=== PATIENT | female | born 1940 | race Caucasian/White ===

== ENCOUNTER 2017-02-18 12:43 | Inpatient (IN) ==
--- NOTE | 2017-02-18 13:49 | PROVIDER DOCUMENTATION ---
HPI-Musculoskeletal Pain/Inj - GENERAL Chief Complaint: Fall Stated Complaint: FALL Time Seen by Provider: 02/18/17 13:34 Source: patient, family - HX OF PRESENT ILLNESS-MUSKULOSKELTAL Nature of Presenting Problem: 77 year old WF presents with c/o right shoulder, right wrist, right hand, right knee, right hip pain. pt report she had a mechanical fall last night, tripped on her night coat. she reports she fell onto her right side, striking her right wrist/shoulder onto concrete. pt denies head, neck, back trauma/pain. pt report she was up all night due to pain. she reports taking advil last night and this morning without relief. pt has been unable to bear weight on RLE/right knee secondary to pain. pt reports she heard/felt a pop with movement. Quality of Pain: reports: aching, dull Severity in ED: mild Onset/Duration: last night Timing: still present, constant, getting worse Modifying Factors: improves with: nothing, analgesics Any recent injury?: Yes Locality of Occurance: Home Similar Symptoms Previously?: No Recently seen or treated by another doctor?: No - FALL INJURY Location of Pain/Injury: reports: upper extremity, hand(s), pelvis, lower extremity Pain Radiation: reports: no radiation Reason for Fall: reports: lost balance, slipped, tripped Symptoms prior to fall:: reports: none. denies: headache, seizure, other, fever /chills/sweaty, chest pain, rapid heart rate, cough, diarrhea, vomiting, GI bleed, dizzy/lightheaded Loss of Consciousness: no loss of consciousness Injury Associated Symptoms: reports: arm pain, joint pain, snap/crack/pop sensation, unable to bear weight, trouble walking. denies: shortness of breath , sensory/motor loss - TRUNK INJURY Location of Injury(s)/Pain: reports: pelvis Context / Method of Injury: reports: fall Associated Symptoms: denies: denies symptoms, anxiety, arm pain, back/neck pain , chest pain, nausea/vomiting, shortness of breath, sensory/motor loss, pain with breathing, other - HIP/PELVIS PAIN/INJURY Hip Pain Location: reports: hip (R), pelvis Pain Radiation: reports: no radiation. denies: abdomen, back, buttocks, feet, genitals, groin, flank, lower legs, periumbilical, upper legs, other Context / Method of Injury: reports: fall Associated Symptoms: reports: denies symptoms. denies: loss of bladder control , loss of bowel control, lower back pain, muscle spasms, numbness in legs/feet, sensory/motor loss, tingling in legs/feet, weakness in legs/feet, other - LOWER EXTREMITY PAIN/INJURY Lower Extremities Pain: hip: right, knee: right Context / Method of Injury: reports: fell Associated Symptoms: reports: denies symptoms. denies: loss of bladder control , loss of bowel control, lower back pain, muscle spasms, numbness in legs/feet, sensory/motor loss, tingling in legs/feet, weakness in legs/feet, other - UPPER EXTREMITY PAIN/INJURY Extremities Pain Location: shoulder: right, arm: right, forearm: right, wrist: right, hand: right Context / Method of Injury: reports: fell Associated Symptoms: reports: denies symptoms. denies: muscle spasms, numbness in upper ext, sensory/motor loss, tingling in upper ext, weakness in upper ext, other Review of Systems - Adult - REVIEW OF SYSTEMS - ADULT Constitutional: reports: no symptoms reported. denies: chills, fever, fatique Eyes: reports: no symptoms reported. denies: discharge, blurred vision, double vision Ears, Nose, Mouth & Throat: reports: no symptoms reported. denies: ear discharge, ear pain, nose pain, loose teeth, throat pain, throat swelling Cardiovascular: reports: no symptoms reported. denies: chest pain, palpitations , syncope Respiratory: reports: no symptoms reported. denies: chronic cough, cough, shortness of breath, wheezing Gastrointestinal: reports: no symptoms reported. denies: abdominal pain, diarrhea, nausea, vomiting Genitourinary: reports: no symptoms reported. denies: dysuria, hematuria, urgency Musculoskeletal: reports: see HPI, bone pain, joint pain, joint swelling. denies: back pain, frequent leg cramps, muscle aches, muscle weakness, neck pain Integumentary: reports: no symptoms reported. denies: hives, itching, skin sores/ulcer Neurological: reports: no symptoms reported. denies: ataxia, numbness, paresthesia Psychiatric: reports: no symptoms reported Endocrine: reports: no symptoms reported Hematologic/Lymphatic: reports: no symptoms reported Allergic/Immunologic: reports: no symptoms reported All Other Systems: Reviewed and Negative Past History - Adult - PAST MEDICAL HISTORY-ADULT Review of Records: reports: Old Records Reviewed, Nursing Assessment Review, Medications Reviewed, Social history reviewed & non-contributory. Major Childhood Illnesses: reports: denies history Cardiovascular: reports: HTN Respiratory: reports: denies history Gastrointestinal: reports: denies history Obstetrical/Gynecological: reports: denies history Genitourinary: reports: denies history Musculoskeletal: reports: arthritis Neurological: reports: denies history Endocrine/Immune: reports: thyroid disorder Other Conditions: reports: denies history - IMMUNIZATION STATUS Childhood Immunizations: See Nurse Assessment Flu Vaccine: See Nurse Assessment - FAMILY HISTORY Family History: reviewed, not pertinent - SOCIAL HISTORY Smoking: denies, non-smoker Substance Use: none/never Alcohol Use Frequency: never Physical Exam-Injury Related - Physical Exam-Injury Related Initial Vital Signs Reviewed: Yes General Appearance: appears well, alert, no apparent distress, obese. negative : mild distress, moderate distress, severe distress Immobilization?: negative: backboard, C-collar Eyes: PERRL/EOMI, pink conjunctivae Head, Ears, Nose, Mouth & Throat: normocephalic/atraumatic, moist mucous membranes, normal ENT inspection, TMs normal, pharynx normal Neck: non-tender, full range of motion, supple, normal inspection. negative: C- spine tenderness, decresed ROM, ecchymosis, limited range of motion, pain on movement, tender lateral, tender midline, vertebral point tenderness Respiratory: chest non-tender, lungs clear, normal breath sounds, no pleuratic chest pain, no respiratory distress, no accessory muscle use. negative: respiratory distress, decreased breath sounds, accessory muscle use, crackles, rales, rhonchi, stridor, wheezing Cardiovascular: normal peripheral pulses, regular rate, rhythm Chest/Breast: no tenderness Peripheral Pulses: radial (R): 3+, radial (L): 3+, dorsalis-pedis (R): 3+, dorsalis-pedis (L): 3+ Abdominal Exam: non tender, soft. negative: distended, guarding, tenderness Back Exam: normal inspection, no CVA tenderness, no vertebral tenderness. negative: CVA tenderness, decreased range of motion, swelling, vertebral tenderness Extremity: no pedal edema, no calf tenderness, normal capillary refill, pelvis stable, deformity (right wrist with deformity, swelling, ecchymosis, decreased ROM, neurovascular intact.), joint effusion (right knee with decreased ROM, flexion/extention. pt able to bear weight with exam, ambulate with slow steady gait.), swelling (right medial/lateral knee with swelling), tenderness, other. negative: normal range of motion, non-tender, normal gait, normal inspection, abnormal NV exam, calf tenderness, pulse deficit, pedal edema, slow capillary refill Integumentary: normal color, warm/dry Neurologic: grossly normal, no motor/sensory deficits Psych/Mental Status: normal mood/affect, normal thought content, normal thought process, oriented x 3 - Glascow Coma Score Best Eye Response (Ismael): (4) open spontaneously Best Verbal Response ([place]): (5) oriented Best Motor Response ([place]): (6) obeys commands [place] Total: 15 Progress - PLAN OF CARE/RESULTS Progress/Plan/Lab Results: Vital Signs - 8 hr 02/18/17 12:50 Temperature 97.9 F Pulse Rate 66 Respiratory Rate 20 Blood Pressure 158/71 O2 Sat by Pulse Oximetry 100 Orders Category Date Time Status Knee Immobilizer .right Care 02/18/17 15:32 Active OCL Splint DIRECTED Care 02/18/17 15:32 Active FOREARM-RIGHT [RAD] Stat Exams 02/18/17 13:51 Completed HAND COMPLETE RIGHT [RAD] Stat Exams 02/18/17 13:50 Completed KNEE 3 VIEWS RIGHT [RAD] Stat Exams 02/18/17 13:52 Completed TRAUMA SHOULDER RIGHT [RAD] Stat Exams 02/18/17 13:49 Completed XRAY PELVIS W/HIP 2-3VW RT [RAD] Stat Exams 02/18/17 13:52 Completed Diph,Pertuss(Acell),Tet Vac/Pf [Boostrix Vaccine] Med 02/18/17 13:50 Discontinued 0.5 ml IM .ONCE ONE Morphine Med 02/18/17 13:50 Discontinued 2 mg IM NOW ONE Ondansetron Odt [Zofran Odt] Med 02/18/17 13:50 Discontinued 4 mg PO NOW ONE Supervisory visit. Pt requested a referral to Dr. Mckay for orthopedics, she reports she has used him in the past for previous orthopedic injuries. Discussed with patient the need to return if she feels as if she is unsafe at home with falling. Pt verbalized understanding. - XRAY 1 XRAY: Right XRAY Study: Forearm Impression: Abnormal (Colles fracture of the wrist. per Dr. Dyson) 2 XRAY: Right XRAY Study: Hand Impression: Abnormal (colles fracture of the wrist. per Dr. Dyson) 3 XRAY: Right XRAY Study: Pelvis, Hip Impression: Abnormal (degenerative changes. per Dr. Dyson) 4 XRAY: Right XRAY Study: Shoulder (Progression in chronic superior positioning of the humeral head, degenrative changes of the shoulder. per Dr. Dyson), Knee ( Knee osteoarthritis and nonspecific joint effusion. per Dr. Dyson) Departure - Departure Date of Disposition Decision: 02/18/17 Time of Disposition Decision: 15:28 DIAGNOSIS: Effusion, right knee Colles' fracture Qualifiers: Encounter type: initial encounter Fracture type: closed Laterality: right Qualified Code(s): S52.531A - Colles' fracture of right radius, initial encounter for closed fracture Fall Qualifiers: Encounter type: initial encounter Qualified Code(s): W19.XXXA - Unspecified fall, initial encounter Contusion of right shoulder Qualifiers: Encounter type: initial encounter Qualified Code(s): S40.011A - Contusion of right shoulder, initial encounter Disposition: HOME 01 Certified Medical Emergency: Emergent Condition: Stable Additional Freetext Instructions: Apply ice to the right wrist for 10 minutes every 2-3 hours, be sure to apply a barrier between your skin and the ice. Wear the splint and the knee immobilizer until you see Dr. Mckay on Monday. Motrin for pain, take with food and pepcid. Take the norco with food and zofran. Do not drink alcohol or drive while taking the norco. ED Follow Up Instructions: You have been treated by a care provider in the Emergency Department. These instructions are being provided to you so you can have an understanding of how to care for yourself upon discharge. Upon discharge from the Emergency Department, you are responsible for making arrangements for follow-up care by a physician of your choice. Take all prescribed medications as directed. Return to the Emergency Department immediately for any new or worsening symptoms. You may call the Physician Referral phone number at [phone] to obtain a list of Physicians who are taking new patients. Prescriptions: Ibuprofen [Motrin] 600 mg PO Q8H PRN PRN #10 tablet PRN Reason: pain, inflammation Hydrocodone/APAP 5 mg/325 mg [Marbury-5] 0.5 - 1 each PO Q6H PRN PRN #7 tablet PRN Reason: Pain Famotidine [Pepcid] 20 mg PO DAILY #20 tablet Ondansetron Odt [Zofran 4 mg Odt] 4 mg PO Q6H PRN PRN #20 tablet PRN Reason: nausea with the norco Referrals and Follow-Ups: Cassius Mitchell MD [Primary Care Provider] - Freddy Mckay MD [ACTIVE STAFF PHYSICIAN] - - Critical Care Note This patient required my direct & personal management of CC.: No Attestation - Physician/ ASHOK Attestation Patient care was provided by Advanced Practice Provider:: Yes Advanced Practice Provider:: Aranza Del Castillo Advanced Practice Provider documentation review:: The Mid-level provider documentation, treatment plan and medical decision making was reviewed by the physician who agrees with all treatment and medical decision making by the MLP.
[2017-02-18] MEDS ORDERED: MORPHINE IM ONE (13:50)
[2017-02-18] MEDS ORDERED: BOOSTRIX VACCINE IM ONE (13:50)
[2017-02-18] MEDS ORDERED: ZOFRAN ODT PO ONE (13:50)
--- NOTE | 2017-02-18 14:59 | Diag Imaging Result Doc PS360 ---
HAND COMPLETE RIGHT - 02/18/2017 INDICATION: fall. right hand/wrist trauma TECHNIQUE: Three views COMPARISON: None FINDINGS: There is a mildly impacted Colles' fracture of the distal radius. No fractures in the hand. IMPRESSION: Colles' fracture of the wrist. Electronically signed by Ander Dyson 02/18/2017 2:56 PM
--- NOTE | 2017-02-18 14:59 | Diag Imaging Result Doc PS360 ---
FOREARM-RIGHT - 02/18/2017 INDICATION: fall TECHNIQUE: Two views COMPARISON: None FINDINGS: There is a Colles' fracture of the distal radius. No other fractures of the forearm. IMPRESSION: Colles' fracture of the wrist. Electronically signed by Ander Dyson 02/18/2017 2:57 PM
--- NOTE | 2017-02-18 15:01 | Diag Imaging Result Doc PS360 ---
TRAUMA SHOULDER RIGHT - 02/18/2017 INDICATION: fall, right shoulder pain TECHNIQUE: Three views COMPARISON: 04/22/2014 FINDINGS: There has been progression in the superior subluxation of the humeral head indicating likely supraspinatus tendon rupture that is chronic. No acute fracture or dislocation. Stable moderate degeneration of the glenohumeral and acromioclavicular joints. IMPRESSION: Progression in chronic superior positioning of the humeral head. Degenerative changes of the shoulder. Electronically signed by Ander Dyson 02/18/2017 2:58 PM
--- NOTE | 2017-02-18 15:02 | Diag Imaging Result Doc PS360 ---
XRAY PELVIS W/HIP 2-3VW RT - 02/18/2017 INDICATION: fall, unable to bear weight TECHNIQUE: Three views COMPARISON: CT from 01/03/2017 FINDINGS: There is mild osteoarthritis of the hips bilaterally. Mild degenerative calcifications of the greater trochanters and the iliac wings. Moderate degeneration of the sacroiliac joints and lower lumbar spine. No fracture or dislocation. IMPRESSION: Degenerative changes. Electronically signed by Ander Dyson 02/18/2017 2:59 PM
--- NOTE | 2017-02-18 15:03 | Diag Imaging Result Doc PS360 ---
KNEE 3 VIEWS RIGHT - 02/18/2017 INDICATION: fall, right knee pain TECHNIQUE: COMPARISON: None FINDINGS: There is a moderate, nonspecific joint effusion. No visible fracture. There is advanced degeneration of the medial joint compartment with severe joint space narrowing and osteophyte formation. There is also lesser degeneration of the patella and lateral joint compartments. IMPRESSION: 1. Knee osteoarthritis. 2. Nonspecific joint effusion. Electronically signed by Ander Dyson 02/18/2017 3:00 PM
[2017-02-18] MEDS ORDERED: DILAUDID IV PRN (20:14)
[2017-02-18 20:47] LABS: MANUAL DIFF NEEDED? NO
[2017-02-18 20:48] LABS: BASO% 0.1 % (0.0-0.8); EOS# 0.02 X1000 (0.0-0.7); EOS% 0.3 % (0.0-10.0); HEMATOCRIT 33.2 % (37.0-47.0); HEMOGLOBIN 11.4 g/dL (12.0-16.0); LYMPH# 1.24 X1000 (1.2-3.4); LYMPH% 15.9 % (20.5-51.1); MCH 31.1 PG (27-31); MCHC 34.3 g/dL (33-37); MCV 90.7 FL (81-99); MONO# 0.96 X1000 (0.11-0.59); MONO% 12.3 % (1.7-9.3); MPV 9.3 FL (7.4-10.4); NEUT% 71.4 % (42.2-75.2); PLT 244 X1000 (130-400); RBC 3.66 XMIL (4.2-5.4)
[2017-02-18 20:56] LABS: INR 0.98; PROTIME 10.3 Seconds (9.2-11.7); PTT 26.9 Seconds (22.0-36.0)
[2017-02-18 21:30] LABS: AGAP 11; ALBUMIN 3.5 g/dL (3.5-5.0); ALKALINE PHOSPHATASE 69 U/L (32-104); BUN 17 mg/dL (8-22); CALCIUM 9.6 mg/dL (8.8-10.2); CHLORIDE 92 mmol/L (98-107); COSMO 255; GOT 19 U/L (10-30); GPT 16 U/L (10-36); HEMOGLOBIN A1C 5.7 % (4.8-6.0); POTASSIUM 4.6 mmol/L (3.5-5.1); SODIUM 126 mmol/L (136-145); TCO2 23 mmol/L (25-35); TOTAL BILIRUBIN 0.54 mg/dL (0.20-1.00); TOTAL PROTEIN 6.2 g/dL (6.3-8.3)
[2017-02-18 21:36] LABS: FREE T4 1.68 ng/dL (0.93-1.70)
[2017-02-18] MEDS: LIPITOR PO SCH (23:38)
[2017-02-18] MEDS: TYLENOL PO PRN (23:39)
[2017-02-18] MEDS: PRINIVIL PO SCH (23:39)
--- NOTE | 2017-02-18 23:48 | HISTORY AND PHYSICAL ---
CHIEF COMPLAINT: Fall with right wrist and knee pain and shoulder pain. HISTORY OF PRESENT ILLNESS: The patient is a 77-year-old white female followed in my medical practice who states last evening she was out on her porch watering her storey when she stooped over in her nightgown and stepped on the hem of it causing her to trip forward and injure her right distal forearm, wrist area, wrench her right knee and hurt her right shoulder and hip area. The patient has been found on x-ray to have a mildly impacted right Colles fracture and injury possible ligament strain to the right knee and the ER personnel tried to discharge the patient home but she was unable to ambulate on her right hip and knee as she is an overweight individual and could not get in the car. 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 MEDICATIONS: Prior to admission are Synthroid 112 mcg p.o. daily, lisinopril 10 mg half tablet p.o. b.i.d., Lipitor 20 mg p.o. at bedtime, vitamin C 500 mg p.o. daily, B complex vitamin 1 p.o. daily, vitamin D3 2000 units p.o. daily, MiraLAX 17 g in 8 ounces of water daily. ALLERGIES: Levaquin and adhesive tape. PAST MEDICAL HISTORY: 1. Hypothyroidism diagnosed 1977. 2. Hyperlipidemia. 3. Fibrocystic breast disease. 4. Mitral valve prolapse. 5. 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 6. Membranous nephropathy followed long-term by nephrology at [facility]. 7. History of melanoma right breast area remote. 8. Gout. 9. Hypertension. 10. Type 2 DM diagnosed March 2004. 11. Diverticulosis diagnosed 2006. 12. Mild CAD per left heart catheterization June 2009. PAST SURGICAL HISTORY: 1. Breast biopsy x2. 2. Cholecystectomy. 3. BROOKLYN, BSJuan Manuel 1985. 4. Bilateral cataract surgery 2013. IMMUNIZATIONS: Patient has received Pneumovax 23 11/12/1998, 10/04/2004 and 11/17/2016. Prevnar 13 given June 2015. Last flu vaccination March 2016. FAMILY HISTORY: Notable for laryngeal cancer in her father, aunt with female cancer, NC in her mother her early 40s, stroke in her grandmother, hypertension in her mother, mother and father with hypercholesterolemia. SOCIAL HISTORY: Patient lives in [facility]. She is , has 2 children. 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 No drug use. REVIEW OF SYSTEMS: Negative except for chronic constipation. Last colonoscopy 2012. PHYSICAL EXAMINATION: VITAL SIGNS: Afebrile, pulse 65, respirations 18, blood pressure 135/69, O2 saturation room air 97%. Weight 185, 5 feet 2 inches tall. GENERAL: Moderately obese white female in mild discomfort with her right wrist and hip and knee area. SKIN: No lacerations. HEENT: NC/AT, PRISCILLA, EOMI. Sclerae clear. OP no redness. Tongue in the midline. NECK: No LA, TMG, JVD, bruits. CV: RRR with faint 1/6 murmur. LUNGS: CTA. ABDOMEN: Protuberant, soft, NT, ND, no mass, no HSM. BREASTS/PELVIC/RECTAL: Deferred. EXTREMITIES: Left lower extremity peripheral pulse 2+/4 and there is no swelling or calf tenderness on the left. There is a right knee immobilizer currently in place and the right wrist, forearm area has a splint on it heavily wrapped. She is tender about the right shoulder. DATA: X-rays have been done and show right knee osteoarthritis with nonspecific joint effusion. Hip and pelvis show degenerative changes bilaterally/OA but no fracture. Forearm and wrist x-ray and hand x-ray shows Colles fracture right distal radius and mildly impacted. Right shoulder x- ray reveals progression of chronic superior positioning of the humeral head and degenerative changes of the shoulder. The patient has had some longstanding right shoulder difficulty and is followed by Dr. Anton in this regard. ASSESSMENT: 1. Inability to walk. 2. Right Colles fracture mildly impacted. 3. Right knee effusion and sprain, rule out cartilage tear or ligament tear. 4. Right hip pain. 5. Right shoulder pain. 6. Fall mechanical in nature. 7. Hypothyroidism. 8. Hypertension. 9. Type 2 diabetes mellitus. 10. Mild coronary artery disease. 11. Diverticulosis. 12. Membranous nephropathy. 13. Remote history of melanoma. 14. Mitral valve prolapse. 15. Hyperlipidemia. 16. Obesity. PLAN: At this time will admit the patient. Will get labs. Will give patient pain control. Will ask Dr. Mckay to see her for orthopedic difficulties. Monitor Accu-Cheks and give SSI as required keeping her on a diabetic diet, saline lock her and will consult addiction social worker for inpatient rehab evaluation. Await Dr. Mckay's evaluation. cc: Cassius Mitchell MD
[2017-02-19] MEDS: HUMULIN R SUBQ SCH ×5 (02:31→22:22)
[2017-02-19] MEDS ORDERED: SYNTHROID PO SCH (07:00)
[2017-02-19] MEDS: MIRALAX PO SCH (10:35)
[2017-02-19] MEDS: VITAMIN C PO SCH (10:36)
[2017-02-19] MEDS: VICON-C PO SCH (10:36)
[2017-02-19] MEDS: PRINIVIL PO SCH ×2 (10:37→22:22)
[2017-02-19] MEDS: VITAMIN D PO SCH (10:37)
--- NOTE | 2017-02-19 15:44 | PROGRESS NOTE ---
DATE: 02/19/2017 SUBJECTIVE: Patient overall stable. Some soreness about the knee, forearm, shoulder. OBJECTIVE: Vital signs: Afebrile, pulse 74, respirations 18, O2 saturation is that 98% room air. Blood pressure 92/42, Cardiovascular: Regular rhythm and rate. Lungs: Computed tomography angiography. No calf tenderness, cords or edema. Mild swelling about the right knee. Small abrasion right anterior knee. There is a splint on the right wrist/forearm area, tender diffusely about the right shoulder. LABORATORY DATA: From yesterday shows sodium 126, potassium 4.6, BUN 17, creatinine 0.8. LFTs normal. TSH 0.07. Free T4 1.68. White count 7.8, hemoglobin 11.44, platelets 244,000, PT and PTT normal. ASSESSMENT: 1. Fall. 2. Right Colles fracture. 3. Right rotator cuff tear. 4. Right knee effusion and sprain with osteoarthritis noted. 5. Mild right hip pain. 6. Hyponatremia. 7. Hypothyroidism. 8. Hypertension. 9. Type 2 diabetes mellitus, diet controlled. 10. Mild coronary artery disease. 11. Diverticulosis. 12. Membranous nephropathy. 13. Remote history of melanoma. 14. Mitral venous prolapse. 15. Hyperlipidemia. 16. Obesity. PLAN: We will check urine sodium level. We will repeat BMP and CBC in the morning. Reduce her Synthroid from 112-100 mcg daily. Physical therapy will be initiated. Spoke with Dr. Carlos Sosa regarding the patient from an orthopedic standpoint. Rehab will be planned as she is unable to care for herself and her who has severe Alzheimer's. cc: Cassius Mitchell MD
--- NOTE | 2017-02-19 18:04 | CONSULTATION ---
DATE OF CONSULTATION: 02/19/2017 SUBJECTIVE: Olesya Plummer is a 77-year-old female who suffered a fall yesterday, complains of right shoulder, right knee and right wrist pain as well as right hip lateral pain. PHYSICAL EXAM: Reveals well nourished female. She is alert, oriented, cooperative exam. She is in a short-arm splint on the right. She has pain with any range of motion of her shoulder. She has pain with range of motion of her right knee but her leg and arm are neurovascularly intact. She has some mild pain in her right hip. Her hip was stable. Past medical history, past surgical history, medications, allergies see admission history and physical. DATA: X-rays show a right shoulder arthritis with proximal humeral head migration consistent with chronic rotator cuff tear. Her AP pelvis showed some degenerative changes. Her x-rays of her knee show severe [id number] degenerative joint disease of the right knee. Her wrist x-rays show a mildly impacted distal Colles fracture. IMPRESSION: 1. Right knee degenerative joint disease with acute flare. 2. Right shoulder osteoarthritis and chronic rotator cuff tear. 3. Right distal Colles fracture. PLAN: We will keep her in her splint on the right. We can discontinue the knee immobilizer as tolerated. We will get physical therapy to work with her for ambulation with a platform walker on the right. She will likely go to rehab later in the week. cc: MD Cassius Bey MD
[2017-02-19] MEDS: LIPITOR PO SCH (22:21)
[2017-02-20 06:27] LABS: HEMATOCRIT 37.6 % (37.0-47.0); HEMOGLOBIN 12.6 g/dL (12.0-16.0); MCH 30.9 PG (27-31); MCHC 33.5 g/dL (33-37); MCV 92.2 FL (81-99); MPV 9.8 FL (7.4-10.4); RBC 4.08 XMIL (4.2-5.4)
[2017-02-20 06:40] LABS: AGAP 11; BUN 16 mg/dL (8-22); CALCIUM 9.2 mg/dL (8.8-10.2); CHLORIDE 92 mmol/L (98-107); COSMO 258; POTASSIUM 5.1 mmol/L (3.5-5.1); SODIUM 128 mmol/L (136-145); TCO2 25 mmol/L (25-35)
[2017-02-20] MEDS ORDERED: SYNTHROID PO SCH (07:00)
[2017-02-20] MEDS: HUMULIN R SUBQ SCH ×4 (08:22→20:30)
[2017-02-20] MEDS ORDERED: DULCOLAX PR PRN (08:41)
[2017-02-20] MEDS ORDERED: MILK OF MAGNESIA PO PRN (08:41)
--- NOTE | 2017-02-20 09:35 | PROGRESS NOTE ---
DATE: 02/20/2017 SUBJECTIVE: Patient overall doing well. No specific complaints. No bowel movements since admission. OBJECTIVE: Vital Signs: Afebrile, pulse 72, respirations 16, blood pressure 140/91, O2 saturation on room air is 99%. CV: RRR. Lungs: CTA. Abdomen: Protuberant, soft, nontender, nondistended. Extremities: No calf tenderness or cords. Right knee with mild swelling, mild abrasion of anterior knee. Tender about the right knee, right shoulder, right hip area. Right wrist and forearm have a splint in place. Lab Data: Shows white count 8.7, hemoglobin 12.6, platelets 280,000. Sodium 128, potassium 5.1, chloride 92, CO2 25, BUN 16, creatinine 0.8, glucose 90, A1c 5.7, calcium 9.2. TSH 0.07, free T4 1.68. Apparently, patient is on suppressive therapy for thyroid nodules per Dr. Hamm. Urine sodium is 55. ASSESSMENT: 1. Fall. 2. Right Colles fracture with splint in place. 3. Right rotator cuff tear, complete. 4. Right knee effusion with sprain and osteoarthritis. 5. Mild right hip pain without fracture. 6. Syndrome of inappropriate antidiuretic hormone secretion, mild without known etiology. 7. Hypothyroidism with thyroid nodules and suppressive therapy per Dr. Hamm. 8. Hypertension. 9. Type 2 diabetes mellitus, diet controlled. 10. Mild coronary artery disease. 11. Diverticulosis. 12. Membranous nephropathy. 13. Remote history of melanoma. 14. Mitral valve prolapse. 15. Hyperlipidemia. 16. Obesity. PLAN: Continue to work with physical therapy. We will continue to monitor her sodium level. We will initiate DVT prophylaxis with subcutaneous Lovenox. We are working toward an inpatient rehab facility as she is trying to ambulate with a walker but difficult as she cannot bear any pressure on her right arm due to the splint and she is overweight. We will resume her Synthroid back up at her dose per Dr. Hamm at 112 mcg daily. We will provide laxatives as needed for mild constipation. cc: Cassius Mitchell MD
[2017-02-20] MEDS: PRINIVIL PO SCH ×2 (09:49→20:31)
[2017-02-20] MEDS: MIRALAX PO SCH (09:49)
[2017-02-20] MEDS: VITAMIN D PO SCH (09:49)
[2017-02-20] MEDS: VICON-C PO SCH (09:49)
[2017-02-20] MEDS: VITAMIN C PO SCH (09:49)
[2017-02-20] MEDS: TYLENOL PO PRN (14:07)
--- NOTE | 2017-02-20 16:18 | PROGRESS NOTE ---
DATE: 02/20/2017 SUBJECTIVE: Ms. Plummer is a 77-year-old female who is 3 days post falling at home where she experienced a right distal Colles fracture, a right shoulder osteoarthritis flare with a chronic rotator cuff tear and a right knee osteoarthritis acute flare. She has no new complaints today. She states that she is doing better. OBJECTIVE: General: She is a well-developed, well-nourished female. She is alert and oriented and cooperative with the examination. Vital Signs: Stable. She is afebrile. Extremities: Her short-arm splint is intact and she has good capillary refill in her fingers on the right side. She discerns soft touch to all fingers and she is able to move all fingers well. She still has pain with range of motion of her shoulder but it is improving. Her right arm and her right leg are neurovascularly intact. ASSESSMENT: 1. Right knee degenerative joint disease with acute flare. 2. Right shoulder osteoarthritis with chronic rotator cuff tear. 3. Right distal Colles fracture. PLAN: We will continue to keep her in a splint on the right wrist. We will have physical therapy work with her for ambulation with a platform walker on the right. We will continue to monitor and she will likely go to rehab later this week. Dictated by KILLIAN Sarah for Armando Sosa MD cc: KILLIAN Sarah MD Stephen W. Harbin, MD
[2017-02-20] MEDS: LIPITOR PO SCH (20:31)
[2017-02-21] MEDS: SYNTHROID PO SCH (06:33)
[2017-02-21] MEDS: LOVENOX SUBQ SCH (08:54)
[2017-02-21] MEDS: MIRALAX PO SCH (08:54)
[2017-02-21] MEDS: VICON-C PO SCH (08:55)
[2017-02-21] MEDS: VITAMIN C PO SCH (08:55)
[2017-02-21] MEDS: VITAMIN D PO SCH (08:55)
[2017-02-21] MEDS: PRINIVIL PO SCH ×2 (08:55→21:55)
--- NOTE | 2017-02-21 11:40 | PROGRESS NOTE ---
DATE: 02/21/2017 SUBJECTIVE: Ms. Plummer is a 77-year-old female, who is 4 days post following at home where she experienced a right distal Colles fracture, a right shoulder osteoarthritis acute flare with a chronic rotator cuff tear, and a right knee osteoarthritis acute flare. She states that she is still improving today, although her right knee is still bothering her. Otherwise, she is doing well. OBJECTIVE: General: She is a well developed, well-nourished female. She is alert, oriented, and cooperative with the examination. She is in no acute distress. Vital signs: Stable. She is afebrile. Extremities: Her right arm is in a short-arm splint which is intact. She has good capillary refill, and she discerned soft touch in all fingers. Gross motor and function is intact on her right side. She still has pain with range of motion of her shoulder and her right knee, but is improving. Right arm and right leg are neurovascularly intact. ASSESSMENT: 1. Right knee degenerative joint disease with acute flare. 2. Right shoulder osteoarthritis with chronic rotator cuff tear with acute flare. 3. Right distal Colles fracture. PLAN: We will continue to keep her in a splint on the right wrist, and we will continue working with her with physical therapy. She can be discharged to rehab when she is medically stable. We will have her follow up to see Dr. Sosa in 2 weeks for repeat x-rays of her right distal radius fracture. Dictated by KILLIAN Sarah for Armando Sosa MD cc: KILLIAN Sarah MD Stephen W. Harbin, MD
[2017-02-21] MEDS: HUMULIN R SUBQ SCH ×4 (11:53→21:54)
[2017-02-21] MEDS: LIPITOR PO SCH (21:55)
[2017-02-22] MEDS: SYNTHROID PO SCH (06:06)
[2017-02-22] MEDS: HUMULIN R SUBQ SCH ×2 (06:16→11:30)
[2017-02-22] MEDS: VICON-C PO SCH (10:01)
[2017-02-22] MEDS: VITAMIN C PO SCH (10:02)
[2017-02-22] MEDS: VITAMIN D PO SCH (10:02)
[2017-02-22] MEDS: PRINIVIL PO SCH (10:02)
[2017-02-22] MEDS: LOVENOX SUBQ SCH (10:03)
[2017-02-22] MEDS: MIRALAX PO SCH (10:03)
--- NOTE | 2017-02-22 10:26 | DISCHARGE SUMMARY ---
ADMISSION DATE: 02/18/2017 DISCHARGE DATE: 02/22/2017 DISCHARGE DIAGNOSES: 1. Fall. 2. Inability to walk without the help of a walker. 3. Right Colles' fracture, mildly impacted, not in need of surgery per orthopedics. 4. Right knee effusion and sprain on top of osteoarthritis. 5. Right hip pain following fall without evidence of fracture. 6. Complete right rotator cuff tear which is chronic and old but exacerbated by recent fall with osteoarthritis there as well. 7. Hypothyroidism. 8. Hyponatremia. 9. Possible syndrome of inappropriate antidiuretic hormone. 10. Hypertension. 11. Type 2 diabetes mellitus. 12. Mild coronary artery disease. 13. Diverticulosis. 14. Membranous nephropathy. 15. Remote history of melanoma. 16. Mitral valve prolapse. 17. Hyperlipidemia. 18. Morbid obesity. 19. Headache, improved today. SWEATBAND FLANGER: Dr. Armando Sosa, Orthopedics. PROCEDURES: X-rays done of the shoulder and forearm, pelvis, hips, knee on the right all revealing arthritic changes in the knee and right shoulder with probable complete tear of the right rotator cuff noted by displacement of the right humerus superiorly. Patient also has mildly impacted right Colles' fracture. REASON FOR ADMISSION AND HOSPITAL COURSE: The patient is a 77-year-old white female, who is obese, suffered a mechanical fall on 02/17/2017 and injured her right arm, right hip, right knee, right shoulder. She did not hit her head and had no loss of consciousness. She had stepped on her gown while she was watering her plants and gone down on her porch. She had trouble sleeping over night, but the next morning sought attention in the ER where x-rays confirmed mildly impacted right Colles' fracture and a splint was placed, but she could not hardly walk. She was discharged out to her car but almost had 2 falls trying to get into her vehicle with maximum assistance. Therefore, she was brought back in to the emergency room and admitted. Physical therapy worked with the patient and Dr. Sosa saw the patient in orthopedic consult with a walker given and medical problems were stable and essentially kept on home medicines with some SSI given as required. The patient suffered a severe headache on 02/21/2017 which was a little concerning and her blood pressure was good. We monitored throughout the day and that seemed to improve markedly by 02/22/2017. We were considering a CT of the head but, again, she had no history of head trauma. Neurological exam was nonfocal with cranial nerves intact. She had improved by 02/22/2017, and it was thought she was okay to go into a rehab facility which she desired. DISCHARGE MEDICATIONS: 1. Synthroid 112 mcg p.o. daily. 2. Prinivil 10 mg half tablet p.o. b.i.d. 3. Lipitor 20 mg p.o. at bedtime. 4. Vitamin C 500 mg p.o. daily. 5. B complex vitamin 1 p.o. daily. 6. Vitamin D 3 2000 units p.o. daily. 7. [place] 5 half to 1 p.o. q.6 hours p.r.n. pain. 8. Pepcid 20 mg p.o. daily. 9. Zofran 4 mg ODT p.o. q. 6 hours p.r.n. nausea or vomiting. 10. Motrin 600 mg p.o. q. 8 hours p.r.n. pain. 11. Tylenol 650 mg p.o. q.6 hours p.r.n. pain. 12. Dulcolax suppository 10 mg daily p.r.n. constipation. 13. Lovenox 40 mg subcutaneous q. 24 hours. 14. MiraLAX 17 g in 8 ounces of water daily. 15. Milk of Magnesia 30 mL p.o. daily p.r.n. constipation. LABORATORY DATA: Urine sodium elevated at 55. Discharge sodium was 128 which will need to be followed up in a week in the rehab facility. Discharge potassium 5.1, chloride 92, CO2 of 25. BUN 16, creatinine 0.8, glucose 90. Calcium 9.2. Liver function tests were normal. TSH 0.07 and free T4 of 1.68. She was on suppressive therapy per Dr. Hamm. So, we did not adjust that medication downward. White count 8.72, hemoglobin 12.6, platelets 280,000. PT 10.3, INR 0.98. PTT 26.9. PLAN: She will follow up with Dr. Sosa in 2 weeks and myself in 3 and half weeks. cc: MD Armando Lopez MD
[2017-02-22 12:19] VITALS: BP 128/72
--- NOTE | 2017-02-22 18:13 | PROGRESS NOTE ---
DATE: 02/22/2017 SUBJECTIVE: Olesya Plummer is a 77-year-old female who we are seeing for knee pain, hip pain, and a right wrist fracture. She states her knee and hip are much better. She states her wrist is better as well. PHYSICAL EXAMINATION: Reveals a well-developed, well-nourished female. She is alert and cooperative with exam. The splint on her hand incorporates her thumb and keeps her from being able to use her hand appropriately, but otherwise her hand is neurovascularly intact. ASSESSMENT: Healing right distal radius fracture with contusion to right knee, pelvis, and hip. PLAN: We are going to change her splint today. She can be transferred to rehab. She will return to see me in 2 weeks for follow-up exam. cc: MD Cassius Bey MD
== END 2017-02-22 14:08 ==
LOC: ED 12:43 → 4N 18:54
PROVIDERS: ADMIT Family Medicine; ATTEND Family Medicine

== ENCOUNTER 2019-01-11 17:59 | Inpatient (IN) ==
[2019-01-11] MEDS ORDERED: NS 1,000 ML IV ONE (18:22)
[2019-01-11] MEDS ORDERED: ZOFRAN IV ONE (18:22)
[2019-01-11 18:56] LABS: BASO# 0.01 X1000 (0.0-0.2); BASO% 0.1 % (0.0-0.8); EOS# 0.01 X1000 (0.0-0.7); EOS% 0.1 % (0.0-10.0); HEMATOCRIT 33.3 % (37.0-47.0); HEMOGLOBIN 11.9 g/dL (12.0-16.0); IMM GRAN# 0.05 X1000 (0.0-0.04); IMM GRAN% 0.5 % (0.0-0.5); LYMPH# 0.84 X1000 (1.2-3.4); LYMPH% 8.2 % (20.5-51.1); MCH 30.7 PG (27-31); MCHC 35.7 g/dL (33-37); MCV 85.8 FL (81-99); MONO# 0.66 X1000 (0.11-0.59); MONO% 6.4 % (1.7-9.3); NEUT# 8.71 X1000 (1.4-6.5); NEUT% 84.7 % (42.2-75.2); PLT 259 X1000 (130-400); RBC 3.88 XMIL (4.2-5.4); RDW 11.9 % (11.5-14.5); WBC 10.28 X1000 (4.8-10.8)
[2019-01-11 19:39] LABS: AGAP 13; ALB/GLOB RATIO 1.2; ALBUMIN 3.8 g/dL (3.5-5.0); ALKALINE PHOSPHATASE 74 U/L (32-104); AMYLASE 46 U/L (20-200); BUN 21 mg/dL (8-22); CALCIUM 8.4 mg/dL (8.8-10.2); CHLORIDE 79 mmol/L (98-107); COSMO 227; CREATININE 0.8 mg/dL (0.5-0.9); ESTIMATED GFR > 60; GLUCOSE 103 mg/dL (70-104); GOT 34 U/L (10-30); GPT 23 U/L (10-36); LIPASE 38 U/L (13-60); POTASSIUM 4.9 mmol/L (3.5-5.1); SODIUM 110 mmol/L (136-145); TCO2 18 mmol/L (25-35); TOTAL BILIRUBIN 0.91 mg/dL (0.20-1.00); TOTAL PROTEIN 6.9 g/dL (6.3-8.3)
--- NOTE | 2019-01-11 20:02 | PROVIDER DOCUMENTATION ---
This chart was entered by Paige Owen Scribe, acting as scribe for Albert Santillan MD. HPI-General Adult - General Chief Complaint: N/V/D Stated Complaint: DIZZY, CONFUSION, VOMITING Time Seen by Provider: 01/11/19 18:22 Source: patient Allergies/Adverse Reactions: Patient Allergies Allergy/AdvReac Type Severity Reaction Status Date / Time levofloxacin [From Levaquin] Allergy Severe DIZZINESS Verified 01/11/19 18:16 adhesive Allergy Unknown Unknown Verified 01/11/19 18:16 Home Medications: Home Medication List Medication Instructions Recorded Confirmed Last Taken Type Atorvastatin Calcium [Lipitor] 20 mg PO HS 10/29/13 02/18/17 02/17/17 23:30 History LISINOpril [Prinivil] 0.5 tab PO BID 10/29/13 02/18/17 02/18/17 08:00 History Levothyroxine Sodium [Synthroid] 112 mcg PO DAILY 10/29/13 02/18/17 02/18/17 08:00 History Ascorbic Acid [Vitamin C] 500 mg PO DAILY 11/05/13 02/18/17 02/18/17 08:00 History Cholecalciferol (Vitamin D3) 2,000 unit PO DAILY 11/05/13 02/18/17 02/18/17 08:00 History [Vitamin D3] Multivits,Therap W-Fe,Hematin 1 each PO DAILY 11/05/13 02/18/17 02/18/17 08:00 History [Vitamin B Complex] Famotidine [Pepcid] 20 mg PO DAILY #20 tablet 02/18/17 Unknown Rx Hydrocodone/APAP 5 mg/325 mg 0.5 - 1 each PO Q6H PRN PRN #7 02/18/17 Unknown Rx [[place]-5] tablet Ibuprofen [Motrin] 600 mg PO Q8H PRN PRN #10 tablet 02/18/17 Unknown Rx Ondansetron Odt [Zofran 4 mg Odt] 4 mg PO Q6H PRN PRN #20 tablet 02/18/17 Unknown Rx Acetaminophen [Tylenol] 650 mg PO Q6H PRN PRN #0 tablet 02/21/17 Unknown Rx Bisacodyl [Dulcolax] 10 mg UT DAILY PRN PRN #0 supp 02/21/17 Unknown Rx Enoxaparin [Lovenox] 40 mg SUBQ Q24H syringe 02/21/17 Unknown Rx Magnesium Hydroxide [Milk of 30 ml PO DAILY PRN PRN #0 udc 02/21/17 Unknown Rx Magnesia] Polyethylene Glycol 3350 [Miralax] 17 gm PO DAILY powder, packet 02/21/17 Unknown Rx - History of Present Illness -Gen Adult Nature of Presenting Problems: Pt is 78/F presenting to ED w/ nausea that started 2 days ago and vomiting that just started today. Pt sts that she has been weak and shaky as well. She was dx w/ bronchitis on the and has been on keflex,proair and prednisone since. Location of Pain/Injury: reports: abdomen Pain Radiation: reports: no radiation Quality of Pain: reports: other (nausea, denies any abd pain) Severity: reports: mild Onset/Duration: reports: 2 days ago Timing: reports: still present Context/Activities at Onset: reports: none Modifying Factors: improves with: nothing Associated Symptoms: reports: diarrhea, fatigue, nausea, vomiting, weakness. denies: constipation Similar Symptoms Previously?: Yes Recently seen or treated by another doctor?: Yes Review of Systems - Adult - REVIEW OF SYSTEMS - ADULT Constitutional: reports: no symptoms reported. denies: chills, fever Eyes: reports: no symptoms reported Ears, Nose, Mouth & Throat: reports: no symptoms reported Cardiovascular: reports: no symptoms reported Respiratory: reports: no symptoms reported Gastrointestinal: reports: no symptoms reported, nausea, vomiting. denies: abdominal pain Genitourinary: reports: no symptoms reported Musculoskeletal: reports: no symptoms reported. denies: back pain Integumentary: reports: no symptoms reported Neurological: reports: no symptoms reported. denies: dizziness/vertigo, headache/migraines Psychiatric: reports: no symptoms reported Endocrine: reports: no symptoms reported Hematologic/Lymphatic: reports: no symptoms reported Allergic/Immunologic: reports: no symptoms reported All Other Systems: Reviewed and Negative Past History - Adult - PAST MEDICAL HISTORY-ADULT Review of Records: reports: Old Records Reviewed, Nursing Assessment Review, Medications Reviewed, Social history reviewed & non-contributory. Major Childhood Illnesses: reports: denies history Cardiovascular: reports: HTN Respiratory: reports: denies history Gastrointestinal: reports: denies history Obstetrical/Gynecological: reports: denies history Genitourinary: reports: denies history Musculoskeletal: reports: arthritis Neurological: reports: denies history Endocrine/Immune: reports: thyroid disorder Other Conditions: reports: denies history - IMMUNIZATION STATUS Childhood Immunizations: See Nurse Assessment Flu Vaccine: See Nurse Assessment - FAMILY HISTORY Family History: reviewed, not pertinent - SOCIAL HISTORY Smoking: denies, non-smoker Substance Use: none/never, none presently/history of abuse Alcohol Use Frequency: never Living Situation: family Physical Exam-General - PHYSICAL EXAM-ADULT Initial Vital Signs Reviewed: Yes - CONSTITUTIONAL General Appearance: appears well, alert, no apparent distress - EYES Eyes: PERRL/EOMI, pink conjunctivae - HEAD, EARS, NOSE, MOUTH & THROAT HENMT: normocephalic/atraumatic, moist mucous membranes, normal ENT inspection, TMs normal, pharynx normal - NECK Neck: non-tender, full range of motion, supple, normal inspection - RESPIRATORY Respiratory: lungs clear - CARDIOVASCULAR Cardiovascular: regular rate, rhythm - GASTROINTESTINAL (ABDOMEN) Abdominal Exam: normal bowel sounds, non tender, soft - LYMPHATIC Lymphatic: no adenopathy - MUSCULOSKELETAL Back Exam: normal inspection, no CVA tenderness, no vertebral tenderness Extremity: normal range of motion, non-tender, normal gait, normal inspection - SKIN Integumentary: normal color, warm/dry - NEUROLOGIC Neurologic: grossly normal - PSYCHIATRIC Psych/Mental Status: normal mood/affect, normal thought content, normal thought process, oriented x 3 Progress - PLAN OF CARE/RESULTS Progress/Plan/Lab Results: Vital Signs - 8 hr 01/11/19 18:03 Temperature 98.8 F Pulse Rate 71 Respiratory Rate 18 Blood Pressure 128/82 O2 Sat by Pulse Oximetry 100 Laboratory Results - last 24 hr 01/11/19 18:44 WBC 10.28 RBC 3.88 L Hgb 11.9 L Hct 33.3 L MCV 85.8 MCH 30.7 MCHC 35.7 RDW Std Deviation 11.9 Plt Count 259 MPV 10.0 Immature Gran % (Auto) 0.5 Neut % (Auto) 84.7 H Lymph % (Auto) 8.2 L [place] % (Auto) 6.4 Eos % (Auto) 0.1 Baso % (Auto) 0.1 Immature Gran # (Auto) 0.05 H Neut # (Auto) 8.71 H Lymph # (Auto) 0.84 L [place] # (Auto) 0.66 H Eos # (Auto) 0.01 Baso # (Auto) 0.01 Orders Category Date Time Status Saline Loc DIRECTED Care 01/11/19 18:22 Active NPO Diet 01/11/19 18:22 Active AMYLASE [CHEM] Stat Lab 01/11/19 18:44 Received CBC WITH ELECTRONIC DIFF [HEME] Stat Lab 01/11/19 18:44 Completed COMPREHENSIVE METABOLIC PANEL [CHEM] Stat Lab 01/11/19 18:44 Received LIPASE [CHEM] Stat Lab 01/11/19 18:44 Received URINALYSIS W/POSS RFLX CULT [URINALYSIS] Stat Lab 01/11/19 18:22 Uncollected 0.9% Sodium Chloride Inj [Ns] 1,000 ml Med 01/11/19 18:22 Active IV 500 mls/hr Ondansetron [Zofran] Med 01/11/19 18:22 Discontinued 4 mg IV NOW ONE A/p: Hyponatremia, vomiting. Vitals stable. Started IV fluids. Dr denis. Result Diagrams: 01/11/19 18:44 01/11/19 18:44 - CONSULTS/PCP/HOSPITALIST Notification #1 *Consult/PCP/Hospitalist*: Dr denis Time Discussed: 20:01 Consult Disposition: Admit Departure - Departure Date of Disposition Decision: 01/11/19 Time of Disposition Decision: 20:02 DIAGNOSIS: Hyponatremia Disposition: HOME 01 Certified Medical Emergency: Emergent Condition: Stable Additional Freetext Instructions: We have examined and treated you today on an emergency basis only. This was not a substitute for, or an effort to provide, complete medical care. In most cases, you must let your doctor check you again. Tell your doctor about any new or lasting problems. We cannot recognize and tr eat all injuries or illnesses in one Emergency Department visit. If you had special tests, such as X-rays or CT scans, will be reviewed by radiologist and will call you if there are any new suggestions Follow up with primary care provider in 1 to 2 days if no improvement. If you do not have a primary care provider, you need to choose one as soon as possible. Take medicines as prescribed. Monitor for any side effects or adverse events from medications. If any side effect, adverse event or rash develops, or if you suspect any other adverse reaction to the medication, then discontinue the medic ation immediately and contact clinic /PCP or go to the nearest ER. Narcotic meds / sedative meds instruction - patent advised not to drive, operate any machinery or go into water after taking meds as it may impair mental ability to react to the situation in an appropriate manner. Continue other current medicines. Follow up with PCP within 24-48 hours, or sooner if symptoms worsen or fail to improve. Patient / guardian verbalizes understanding of treatment plan, medication, and side effects and agrees with treatment plan. Patient leaves ER in stable condition and ambulatory state. Return to ER as needed. Discharge instructions reviewed verbally and given to patient in written form. Follow up with primary care provider. Referrals and Follow-Ups: None,PCP [NON-STAFF PROVIDER] - - Critical Care Note This patient required my direct & personal management of CC.: No Attestation - Physician/ ASHOK Attestation Patient care was provided by Advanced Practice Provider:: No The physician spent face to face time with patient:: Yes Advanced Practice Provider documentation review:: Supervising physician onsite and consulted in the evaluation and care of this patient. The physician did have a face to face encounter with the patient. This chart was documented by the indicated scribe, (Paige Owen, Scribe) and accurately reflects the services I performed and decisions made by me, Albert Santillan MD, as attested by the provider's signature.
[2019-01-11 21:33] LABS: INR 0.97; PROTIME 13.6 Seconds (11.0-16.0)
[2019-01-11 21:34] LABS: PTT 33.3 Seconds (22.3-41.8)
[2019-01-11 21:39] LABS: URINE SOURCE CLEAN CATCH
--- NOTE | 2019-01-11 22:06 | Diag Imaging Result Doc PS360 ---
EXAM: CHEST-PORTABLE - 01/11/2019 HISTORY: Dizziness,Weakness,recent Dx of Bronchitis TECHNIQUE: Portable chest COMPARISON: 09/02/2015 FINDINGS: Heart size appears normal. There is apparent small calcified granuloma from old granulomatous disease at the medial right upper lobe which is stable. The lungs otherwise appear essentially clear. There is no consolidation, pleural effusion, or pneumothorax identified. There are small artifacts9 from buttons on the patient's clothing noted on the left. There is no pleural effusion or pneumothorax identified. There are mildly prominent anterior costicartilage calcifications noted. There are degenerative changes noted at the bilateral shoulders. IMPRESSION: No evidence of acute disease. Electronically signed by Dylan Kemp 01/11/2019 10:04 PM
--- NOTE | 2019-01-11 22:11 | Diag Imaging Result Doc PS360 ---
EXAM: CT HEAD W/O CONTRAST - 01/11/2019 HISTORY: Dizziness,Weakness,Confusion TECHNIQUE: CT head without contrast COMPARISON: None. FINDINGS: There is no evidence of intracranial hemorrhage, mass effect, midline shift, or hydrocephalus. There is no evidence of infarct, although acute infarcts may not be immediately visible. Visualized portions of paranasal sinuses and mastoid air cells appear clear. IMPRESSION: No visible acute intracranial abnormality. No hemorrhage or mass effect. This exam was performed using automated exposure control, adjustment of mA or kV according to patient size, and/or use of iterative reconstruction technique. Electronically signed by Dylan Kemp 01/11/2019 10:09 PM
[2019-01-11 22:17] LABS: BILIRUBIN URINE NEGATIVE (NEGATIVE); BLOOD URINE NEGATIVE (NEGATIVE); COLOR YELLOW; GLUCOSE URINE NEGATIVE (NEGATIVE); KETONE URINE 10 mg/dL (NEGATIVE); LEUKOCYTES URINE NEGATIVE (NEGATIVE); NITRITE URINE NEGATIVE (NEGATIVE); PH URINE 5.5; PROTEIN URINE NEGATIVE (NEGATIVE); SP GRAVITY URINE 1.004; TURBIDITY URINE CLEAR (CLEAR); UR EPITHELIAL CELLS <10 /HPF (<10); URINE BACTERIA NEGATIVE /HPF; URINE RBC <10 /HPF (<10); URINE WBC <10 /HPF (<10); UROBILINOGEN URINE NORMAL (NORMAL)
[2019-01-11 22:24] LABS: CK INDEX 5.3 (0.0-2.5); CK-MB 15.37 ng/mL (0.0-5.0)
[2019-01-11] MEDS ORDERED: NS 1,000 ML IV SCH (22:45)
[2019-01-12] MEDS ORDERED: ZOFRAN IV PRN (02:36)
[2019-01-12] MEDS: TYLENOL PO PRN ×2 (02:57→23:48)
[2019-01-12 04:01] LABS: CK INDEX 5.4 (0.0-2.5); CK-MB 15.25 ng/mL (0.0-5.0)
[2019-01-12 07:44] LABS: EOS# 0.03 X1000 (0.0-0.7); EOS% 0.3 % (0.0-10.0); HEMATOCRIT 32.5 % (37.0-47.0); HEMOGLOBIN 11.6 g/dL (12.0-16.0); IMM GRAN# 0.04 X1000 (0.0-0.04); IMM GRAN% 0.4 % (0.0-0.5); LYMPH# 1.28 X1000 (1.2-3.4); LYMPH% 14.3 % (20.5-51.1); MCH 30.9 PG (27-31); MCHC 35.7 g/dL (33-37); MCV 86.4 FL (81-99); MONO# 0.85 X1000 (0.11-0.59); MONO% 9.5 % (1.7-9.3); MPV 10.6 FL (7.4-10.4); NEUT# 6.76 X1000 (1.4-6.5); NEUT% 75.5 % (42.2-75.2); PLT 271 X1000 (130-400); RBC 3.76 XMIL (4.2-5.4); WBC 8.96 X1000 (4.8-10.8)
[2019-01-12 08:15] LABS: AGAP 13; ALBUMIN 3.1 g/dL (3.5-5.0); ALKALINE PHOSPHATASE 66 U/L (32-104); BUN 15 mg/dL (8-22); CALCIUM 8.1 mg/dL (8.8-10.2); CHLORIDE 87 mmol/L (98-107); COSMO 236; CREATININE 0.6 mg/dL (0.5-0.9); ESTIMATED GFR > 60; GLUCOSE 73 mg/dL (70-104); GOT 31 U/L (10-30); GPT 19 U/L (10-36); POTASSIUM 3.9 mmol/L (3.5-5.1); TCO2 17 mmol/L (25-35); TOTAL BILIRUBIN 0.98 mg/dL (0.20-1.00); TOTAL PROTEIN 6.2 g/dL (6.3-8.3)
[2019-01-12 08:28] LABS: SODIUM 118 mmol/L (136-145)
[2019-01-12] MEDS: SYNTHROID PO SCH (08:46)
[2019-01-12] MEDS: THERA M PLUS PO SCH (08:46)
[2019-01-12] MEDS: VITAMIN D PO SCH (08:46)
[2019-01-12] MEDS: VITAMIN C PO SCH (08:46)
[2019-01-12] MEDS: NS 1,000 ML IV SCH ×2 (10:16→15:54)
--- NOTE | 2019-01-12 11:39 | PROGRESS NOTE ---
DATE: 01/12/2019 INTERVAL HISTORY: No acute events overnight. Ms. Plummer was admitted for nausea, vomiting, muscle cramps which have been ongoing for almost 7 days. She tells me that she was diagnosed with bronchitis 7 days ago; right around the same time, she had also started developing nausea, vomiting, and diarrhea. Her diarrhea lasted for 2 days and got better, but her nausea continued and then she started having vomiting 2 days prior to presentation. Also, patient had been taking Advil almost twice a day since last 15 days for her knee pain. SUBJECTIVE: She is feeling better as compared to yesterday. We discussed about clinical exam findings, possible pathophysiology and treatment. I answered all of her questions. Her family is at bedside. VITALS: Temperature 98.1 degrees, pulse 75, respiratory rate 18, blood pressure 106/56, saturating 97% on room air. PHYSICAL EXAMINATION: General: The patient appears anxious, not in any acute distress. HEENT: Oral cavity is moist. Lungs: Air entry bilaterally equal. No wheeze, rhonchi, crackles. Cardiovascular: S1, S2 normal. She has a systolic murmur affecting apex of the heart. No rub or gallop. Abdomen: Soft, nontender. Extremities: Mild lower extremity edema. She has tender muscles to palpation. LABS: Suggestive of normocytic anemia, normal platelet count, normal coagulation. Her sodium was 110 on presentation, which has increased to 118. I have decreased her normal saline rate. Her chloride was 79 on presentation which is increasing to 87. Normal kidney function. Her troponins have been negative. MICROBIOLOGY: No new microbiological data. IMAGING: Head CT was unremarkable. ASSESSMENT AND PLAN: 1. Hyponatremia. This is likely due to a combination of nausea, vomiting, and diarrhea she has been experiencing since last 7 days intermittently. Her use of [id number] nonsteroidal anti-inflammatory drugs could have contributed to gastritis. Also, she had a viral upper respiratory infection about 7 days ago, which could also have caused mild gastroenteritis, which had contributed to her nausea, vomiting, diarrhea, which eventually led to poor oral intake and hyponatremia. Her mentation is intact at the moment and she is feeling better. The plan is to continue normal saline and adjust the rate to keep a goal of 8 to 10 mEq per 24 hour sodium correction. I will follow up with repeat urine sodium and urine osmolality. 2. Others. Continue atorvastatin for hyperlipidemia, levothyroxine for hypothyroidism, ascorbic acid for chronic anemia. I am holding her lisinopril because her blood pressure is low. DISPOSITION: I will follow up with cortisol, TSH, and I plan to continue monitoring patient inside the hospital. Plan of care discussed with her. All of her questions have been answered. cc: MD Cassius Stanton MD MTDD
[2019-01-12 12:30] LABS: CK INDEX 5.3 (0.0-2.5); CK-MB 13.31 ng/mL (0.0-5.0)
--- NOTE | 2019-01-12 13:09 | HISTORY AND PHYSICAL ---
PRIMARY CARE PROVIDER: Was previously Dr. Niru Franco, although she states that she just recently closed her practice here in [place], so at this time she does not actually have a primary care physician. DATE AND TIME: 01/11/2019 at 2030. CHIEF COMPLAINT: Confusion, weakness, nausea, vomiting and diarrhea. HISTORY OF PRESENT ILLNESS: Ms. Plummer is a 78-year-old female, who presented to the ER this evening with reports of confusion, weakness, as well as some nausea, vomiting and diarrhea. Initially, patient was diagnosed with bronchitis on the december, had been given antibiotic of Keflex, as well as prednisone and albuterol inhaler. The patient states that her bronchitis symptoms of cough, chest congestion have improved, though the patient states on Monday she did have some episodes of diarrhea. She denies any hematochezia or melena. The patient states since that time over the last few days that she has just not felt well, though today she did begin to have nausea and did have a couple episodes of vomiting, and also did have dizziness. Her daughter states that she does seem weak and shaky, as well as confused. The patient does answer questions appropriately. The daughter notices that she keeps repeating herself and that is not her normal. The patient denied any hematemesis or coffee-ground emesis. She denied any headache, visual disturbances, chest pain or shortness of breath. She does still have cough noted, although the patient states this has improved in that her sputum went from yellow and is now clear. She is reporting nausea, vomiting and diarrhea, but she is denying any abdominal pain. She also denies any dysuria or urinary frequency. She denies any numbness, tingling or swelling in extremities. The patient does have some chronic pain in her bilateral lower extremities, although she states this is not of new onset and has not worsened On evaluation in the ER, the patient was noted to have hyponatremia with a sodium level of 110. Given that she is reporting dizziness, weakness as well as confusion, I did go ahead and order a head CT noncontrast which did not show any acute intracranial abnormality with no hemorrhage or mass effect noted. Also given reports of weakness and not feeling well with a recent history of bronchitis, we did perform a chest x-ray which did not show any acute disease. This is per Radiology. Upon further questioning, the patient does take Prinivil and has taken this for a very long time. She does have a history of hypertension, as well as membranous nephropathy which is followed by a physician at [facility]. Though, other than her 3 new prescription medicines as mentioned above for treatment of her bronchitis, she denies any other changes to any of her medicines or any other new medicines. The patient will be admitted for further treatment and evaluation. REVIEW OF SYSTEMS: A 14-point review of systems was conducted with the patient. All were negative, except for pertinent positives mentioned in the HPI. PAST MEDICAL HISTORY: 1. Hypothyroidism initially diagnosed in 1977. The patient does have thyroid nodules for which she is followed for by Dr. Hamm and does receive check up on this every 6 months per her report. 2. Hyperlipidemia. 3. Fibrocystic breast disease. 4. Mitral valve prolapse. 5. 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 6. Membranous nephropathy followed by long-term laser engraver at [facility]. 7. History of melanoma in the right breast area. 8. Gout. 9. Hypertension. 10. History of reported pre diabetes, although the patient at this time says she does not take medicines for this. 11. Diverticulosis without reported history of diverticulitis previously. 12. Mild coronary artery disease per left heart catheterization with, according to our records, most recent results in June 2009. PAST SURGICAL HISTORY: 1. Breast biopsy x2. 2. Cholecystectomy. 3. [place], BSJuan Manuel in 1985. 4. Bilateral cataract surgery in 2013. FAMILY HISTORY: Notable for her father having laryngeal cancer. She had an aunt who had female cancer as well. Her mother had a history of an [place] in her early 40s. Her grandmother had a history of stroke. Her mother also had a history of hypertension, and her mother and father both had hypercholesterolemia. SOCIAL HISTORY: The patient lives in [place]. She is . She has 2 children. One of her daughters is present at bedside during my examination. She has known history of tobacco, alcohol or illicit drug use. ALLERGIES: Patient reports allergies to Levaquin and adhesive tape. HOME MEDICATIONS: 1. Vitamin C 5 mg p.o. daily. 2. Lipitor 20 mg p.o. at bedtime. 3. Vitamin D 3 2000 units p.o. daily. 4. Synthroid 100 mcg p.o. daily. 5. Prinivil 5 mg p.o. b.i.d. 6. Vitamin B complex 1 p.o. daily. 7. MiraLAX 17 g p.o. daily p.r.n. for constipation. DIAGNOSTIC DATA/LABORATORY RESULTS: White blood cell count is 10,280, hemoglobin 11.9, hematocrit 33.3, platelet count is 59. PT 13.6, INR 0.97, PTT is 33.3. Sodium 110, potassium 4.9, chloride 79, serum bicarbonate was 18. BUN 21, creatinine 0.8, GFR is greater than 60. Glucose 103, serum osmolality is 238. Calcium 8.4, magnesium 1.6. Liver function tests are within normal limits, except for AST is slightly elevated at 34. CK 290 CK index 5.3, CK-MB is 15.37. Troponin less than 0.01. Amylase 46, lipase 38. Urinalysis was obtained via clean-catch, was positive for ketones, was negative for protein, glucose, blood, nitrites, leukocytes, white blood cells, bacteria. EKG showed sinus rhythm with premature supraventricular complexes at a rate of 69 with a QTc of 424. Chest x-ray showed no evidence of acute disease as per Radiology. CT of the head noncontrast showed no visible acute intracranial abnormality, no hemorrhage or mass effect. PHYSICAL EXAMINATION: VITAL SIGNS: Temperature 98.2 degrees, heart rate 71, respirations 18, blood pressure 128/82. Oxygen saturation is 100% on room air. GENERAL: Ms Plummer is a pleasant 78-year-old, elderly female. She was resting in the ER stretcher. She was in no acute distress. The patient was awake and alert. She was oriented to person, place, time, and situation. I did ask the daughter who reported she tended to repeat things that she already told me, but other than this her speech was clear and understandable. She was able to follow commands. HEENT: Head is atraumatic, normocephalic. Pupils are equal, round, reactive to light, were 3 mm bilaterally and brisk. EOMS were intact. Oral mucosa is moist. Oropharynx clear. NECK: Supple. Trachea midline. No carotid bruits noted upon auscultation bilaterally. CARDIOVASCULAR: Patient has S1, S2 present. No murmurs, gallops, rubs appreciated with a regular rate and rhythm. PULMONARY: Patient has symmetrical chest expansion bilaterally. Lung sounds are clear to auscultation bilateral full murillo. ABDOMEN: Soft. Nontender, nondistended. Bowel sounds are present in all 4 quadrants. Normoactive. EXTREMITIES: No cyanosis, clubbing, or edema noted. Pulse, motor, and sensory is intact in all extremities. Radial pulses are 2+ bilaterally. INTEGUMENTARY: The patient's skin is pink, warm and dry. NEUROLOGICAL: Patient is alert and oriented to person, place, time, and situation. Although the patient's speech is clear and understandable, she did seem to repeat things during my examination, which her daughter had previously described was different from her normal. She denies any numbness or tingling. She has equal hand grasps and muscle strength bilaterally. She has no facial droop noted. No arm drift noted. ASSESSMENT/PLAN: 1. Hypovolemic hypotonic hyponatremia. This could be multifactorial. The patient has had some nausea, vomiting and diarrhea. This is of uncertain etiology as well. She has been on antibiotics that may have caused her to have upset stomach. Also the patient does take Prinivil as well, which could contribute to hyponatremia also. We have held this at this time. We will order some further diagnostic studies to rule out other causes as well. We have placed her with normal saline at 75 mL per hour. We do q. 4 hour serum sodium checks. She will be placed on continuous cardiac telemetry with vital signs q. 4 hours and neuro checks q. 4 hours. We will continue to follow this very closely. 2. Nausea, vomiting and diarrhea. The patient has reported that she has recently been on antibiotics. This may have caused her to have upset stomach and could have contributed to her nausea, vomiting, diarrhea. The patient did not report any episodes of diarrhea today, though we will go ahead and order some stool studies including Clostridium difficile. We will provide p.r.n. antiemetics. The patient is denying any abdominal pain. Her abdominal exam was negative. She reported no tenderness upon palpation. Her abdomen is soft, nondistended. Bowel sounds are present in all 4 quadrants. We will continue to follow along. 3. Dizziness. This is likely secondary to her hyponatremia and some volume depletion. EKG showed sinus rhythm with premature ventricular complexes at a rate of 69. Though we do not have a recent EKG to compare this to, there is 1 in our system in 2013. When in comparison, there do not appear to be acute changes noted. The patient is denying any chest pain, though her troponin was negative. Her CK enzymes were elevated. We will continue with the series of cardiac enzymes. She will be placed on continuous cardiac telemetry. As previously mentioned, her head CT was negative for any acute intracranial abnormalities. We will continue to follow. 4. Hypothyroidism we will continue her Synthroid. We have placed an order for thyroid stimulating hormone. 5. History of membranous nephropathy. The patient does take Prinivil for this, although we will hold this at this time, given that this could be contributing to her hyponatremia. 6. Hypertension. We are holding her Prinivil, though her blood pressure is within normal limits at this time and the last reading of 128/82. We will continue to follow. Implement antihypertensive as necessary. 7. Hyperlipidemia. We will continue her Atorvastatin. 8. Deep vein thrombosis prophylaxis provided with sequential compression devices. The patient has been placed on the medical floor with telemetry. She will have vital signs and neuro checks q. 4 hours. We will repeat a complete blood count and comprehensive metabolic panel in the morning. As previously mentioned, we are doing q. 4 hour serum sodium checks and have placed an order for the physician to be notified with sodium results so that fluids may be adjusted accordingly. Further orders and recommendations pending hospital course, diagnostic studies, and physician evaluation. Dictated by RADHA Parker for Jeffery Tapia MD I have performed a face to face diagnostic evaluation. Labs/ Xrays- reviewed. Exam- Chest- clear, CV- regular. A/P- Hyponatremia, N/V/D- Admit, IV fluids,supportive care, Monitor electrolytes. Dr. Tapia cc: MD Cassius Evans MD [facility]
[2019-01-12 19:01] LABS: CK INDEX 5.1 (0.0-2.5); CK-MB 10.77 ng/mL (0.0-5.0)
[2019-01-12] MEDS: LIPITOR PO SCH ×2 (19:43→21:09)
[2019-01-13] MEDS: SYNTHROID PO SCH (09:59)
[2019-01-13] MEDS: VITAMIN C PO SCH (10:00)
[2019-01-13] MEDS: THERA M PLUS PO SCH (10:00)
[2019-01-13] MEDS: NS 1,000 ML IV SCH ×2 (10:00→15:00)
[2019-01-13] MEDS: VITAMIN D PO SCH (10:00)
[2019-01-13] MEDS: MIRALAX PO SCH (14:33)
[2019-01-13 17:02] LABS: AGAP 12; BUN 9 mg/dL (8-22); CALCIUM 8.4 mg/dL (8.8-10.2); CHLORIDE 95 mmol/L (98-107); COSMO 258; CREATININE 0.7 mg/dL (0.5-0.9); ESTIMATED GFR > 60; GLUCOSE 104 mg/dL (70-104); POTASSIUM 3.9 mmol/L (3.5-5.1); SODIUM 129 mmol/L (136-145); TCO2 22 mmol/L (25-35)
--- NOTE | 2019-01-13 17:13 | PROGRESS NOTE ---
DATE: 01/13/2019 INTERVAL HISTORY: Her sodium was rising appropriately. She denies any nausea, vomiting, abdominal pain, dizziness. She wants to walk. We discussed about polydipsia possibly contributing to her low sodium level as well. VITAL SIGNS: Temperature 98 degrees, pulse 58, respiratory rate of 14, blood pressure 126/60, saturating 97% on room air. PHYSICAL EXAMINATION: General: Does not appear in any acute distress. HEENT: Oral cavity is moist. Lungs: Air entry bilaterally equal. No wheeze, rhonchi, or crackles. Cardiovascular: S1, S2 normal. No murmur or gallop, except systolic murmur affecting apex of the heart. Abdomen: Soft, nontender. Extremities: No lower extremity edema. She has no tenderness to muscle palpation. LABS: Suggestive later sodium of 127. MICROBIOLOGY: No data. ASSESSMENT AND PLAN: 1. Hyponatremia due to a combination of volume depletion due to acute viral gastroenteritis plus [id number] use of nonsteroidal anti-inflammatory drugs, exacerbated by excessive water drinking. Continue normal saline at current rate. Follow up with frequent BMP. Start patient on regular diet. Her symptoms have resolved. 2. Others, continue atorvastatin for hyperlipidemia, levothyroxine for hypothyroidism, ascorbic acid for chronic anemia. I am holding her lisinopril because her blood pressure is stable. 3. Disposition. Based on her neck sodium, my plan is to discontinue normal saline if the next sodium is more than 126 and have her eat a normal diet. If her sodium level continues to be close or higher than 130, then my plan is to discharge her tomorrow home. Plan of care discussed with the patient and her daughter at bedside. The patient is okay to come out of bed and do physical activity, which is her baseline status, since she is not symptomatic at the moment. cc: MD Cassius Stanton MD
[2019-01-13] MEDS: LIPITOR PO SCH ×2 (19:36→20:58)
[2019-01-14 04:36] LABS: AGAP 10; BUN 8 mg/dL (8-22); CALCIUM 8.3 mg/dL (8.8-10.2); CHLORIDE 99 mmol/L (98-107); COSMO 261; CREATININE 0.7 mg/dL (0.5-0.9); ESTIMATED GFR > 60; GLUCOSE 98 mg/dL (70-104); POTASSIUM 3.7 mmol/L (3.5-5.1); SODIUM 131 mmol/L (136-145); TCO2 22 mmol/L (25-35)
[2019-01-14] MEDS: SYNTHROID PO SCH (06:20)
--- NOTE | 2019-01-14 07:59 | EKG Report ---
Test Performed on : 01/11/2019 10:24:43 PM Test Reason : cp Blood Pressure : / mmHG Vent. Rate : 069 BPM Atrial Rate : 069 BPM P-R Int : 182 ms QRS Dur : 102 ms QT Int : 396 ms P-R-T Axes : 059 -08 029 degrees QTc Int : 424 ms Sinus rhythm. with premature supraventricular complexes. Otherwise normal ECG No previous ECGs available Unconfirmed Result
[2019-01-14] MEDS: THERA M PLUS PO SCH (08:48)
[2019-01-14] MEDS: VITAMIN C PO SCH (08:48)
[2019-01-14] MEDS: VITAMIN D PO SCH (08:48)
[2019-01-14] MEDS: MIRALAX PO SCH (08:49)
[2019-01-14 11:23] VITALS: BP 128/69
[2019-01-14] MEDS ORDERED: FLEET ENEMA PR ONE (12:39)
--- NOTE | 2019-01-17 11:20 | DISCHARGE SUMMARY ---
ADMISSION DATE: 01/11/2019 DISCHARGE DATE: 01/14/2019 DISCHARGE DISPOSITION: Home with family. DISCHARGE CONDITION: Hemodynamically stable. Her sodium is 130. She is denying nausea, vomiting, abdominal pain. She has constipation for which an enema has been ordered. DISCHARGE DIAGNOSES: 1. Hypoosmolar hyponatremia. 2. Acute viral gastroenteritis. 3. Confusion and slurred speech with mild encephalopathy in the setting of severe hyponatremia. 4. Hyperlipidemia. 5. Hypothyroidism. 6. Proteinuria. On lisinopril. 7. Fibrocystic breast disease. 8. Mitral valve prolapse. 9. History of possible scleroderma, in long-term remission. 10. History of membranous nephropathy. On lisinopril. DISCHARGE INSTRUCTIONS: The patient has been provided a BMP lab slip to be done within 3 days after discharge and follow up with her regular doctor. DISCHARGE MEDICATIONS: 1. Atorvastatin 20 mg at nighttime. 2. MiraLAX 17 g daily as needed for constipation. 3. Lisinopril 2.5 tablets p.o. b.i.d. for proteinuria. 4. Levothyroxine 100 mcg daily. 5. Multivitamin/B complex 1 tablet daily. 6. Vitamin C 500 mg daily. 7. Vitamin D3 2000 units daily. 8. Acetaminophen 650 mg p.o. every 6 hours as needed. PHYSICAL EXAMINATION: Vitals at the Time of Discharge: Temperature 99.2 degrees, pulse 65, respiratory rate 16, blood pressure 128/69, saturating 100% on room air. General: The patient does not appear in any acute distress. Oral cavity is moist. Air entry bilaterally equal. No wheeze, rhonchi, crackles. S1, S2 normal. Systolic murmur affecting apex of the heart. No rub or gallop. Abdomen is soft, nontender. No lower extremity edema. She is alert and oriented x3. SIGNIFICANT LABORATORIES DURING HOSPITALIZATION: On admission and discharge her hemoglobin is 11.6, platelet 271. Her sodium was 110 on presentation which had improved to 130 at the time of discharge and it was stable despite discontinuing intravenous fluids. Her kidney function is normal with creatinine of 0.7. Her troponins were negative and were less than 0.010. Urine sodium was 29 and urine osmolality was 232. Her cortisol level was 14.6. TSH was 0.38. SIGNIFICANT MICROBIOLOGICAL DATA DURING HOSPITAL ADMISSION: None. SIGNIFICANT IMAGING DURING HOSPITAL ADMISSION: Head CT did not have any acute intracranial abnormality. There was no hemorrhage or mass effect. Chest x-ray on admission did not have any evidence of acute disease. HOSPITAL COURSE SUMMARY: Ms. Plummer is a 78-year-old lady who presented to the emergency room with chief complaints of confusion, slurring of speech, weakness, nausea, vomiting, and diarrhea. Apparently, patient was diagnosed with acute bronchitis 7 days prior to presentation and was started on antibiotics, inhaler, and oral prednisone. Around the same time, she had also started noticing profuse diarrhea. Right around same time, patient had been taking over-the- counter NSAIDs twice daily for her osteoarthritis knee pain. The patient had developed nausea and vomiting since 7 days. Though her diarrhea had resolved, her nausea and vomiting did not get better, and she would have 1 to 2 episodes of vomiting and nausea. On the day of presentation, she was becoming increasingly confused and her speech was slurred so the family decided to bring to the hospital and her sodium was detected to be 110 on the ER, so hospitalist team was consulted for further management. It was thought that her hyponatremia was a combination of volume depletion because of vomiting, diarrhea, and on top of that she was taking a lot of free water for her vomiting and diarrhea and not eating too much since 3 to 4 days prior to presentation. Her cortisol and TSH were normal. Urine sodium and urine osmolality were low. She was started on normal saline resuscitation with a goal of about 8 mEq rise in serum sodium level. With normal saline, it was able to be achieved. Her normal saline infusions were later on stopped, and she was just continued on regular diet. On the regular diet, her sodium was stable at 130 mEq so patient was deemed appropriate for discharge. Her head CT on admission was unremarkable. The patient was provided a BMP slip to have a follow- up with outpatient provider to get a repeat sodium level done. Plan of care was discussed with the patient. All of her questions were answered satisfactorily. COORDINATION TIME: More than 30 minutes spent in discharging this patient. cc: MD Cassius Stanton MD
== END 2019-01-14 15:33 | disposition home or self-care (01) | DRG 641 ==
LOC: ED 17:59 → SUATTDRO 21:41 → 3N 21:41
PROVIDERS: ADMIT Family Medicine; ATTEND Internal Medicine
CPT/HCPCS: 70450; 71010; 71045; 80048; 80053; 81001; 82150; 82533; 82550; 82553; 83690; 83735; 83930; 83935; 84295; 84300; 84443; 84484; 85025; 85610; 85730; 93005; 94760; 94761; 94799; 96374; 99285; A9270; J2405; J7030